=== PATIENT | female | born 1990 | race Caucasian/White ===

== ENCOUNTER 2020-10-28 16:38 | Emergency (ER) | payer OTHER ==
[~2020-10-28] VITALS: Ht 160 cm; Wt 61.0 kg
--- NOTE | 2020-10-28 17:10 | NUR ---
TRIAGE: PATIENT ARRIVES FROM [facility] WHERE SHE WAS FOUND TO HAVE ABDOMINAL PAIN, UA + FOR LEUKS ACCORDING TO PAPERWORK. SHE ADDS THAT LAST NIGHT AT DINNER SHE LOST A STUD EARRING AND IS CONCERNED SHE SWALLOWED IT AND POSSIBLY CAUSING HER PAIN.
--- NOTE | 2020-10-28 17:25 | NUR ---
PT C/O OF INTENSE SHARP PAIN IN ABDOMEN AND LOWER BACK SINCE 9PM LAST NIGHT. DENIES SOB, CP, OR HEADACHE. PT STATES SHE MIGHT HAVE SWOLLOWED A EARRING LAST NIGHT WHEN SHE WAS EATING.
[2020-10-28] MEDS ORDERED: SODIUM CHLORIDE FLUSH 10ML SYR IVF ONE (17:30)
[2020-10-28] MEDS ORDERED: MORPHINE SULFATE 4 MG/ML, 1ML IVPush PRN (17:30)
[2020-10-28] MEDS ORDERED: ONDANSETRON 2MG/ML, 2ML IVPush ONE (17:30)
[2020-10-28] MEDS ORDERED: PLEASE ENTER ALLERGIES MC SCH (17:30)
[2020-10-28] MEDS ORDERED: MORPHINE SULFATE 4 MG/ML, 1ML ONE ×2 (17:33→19:56)
[2020-10-28] MEDS ORDERED: ONDANSETRON 2MG/ML, 2ML ONE ×2 (17:33→19:56)
[2020-10-28 17:46] LABS: BASOPHILS % (AUTO) 1 % (0-1); EOSINOPHILS % (AUTO) 2 % (1-7); LYMPHOCYTES % (AUTO) 39 % (22-44); MEAN CORPUSCULAR HEMOGLOBIN 32.9 pg (27.0-34.8); MEAN CORPUSCULAR HGB CONC 34.3 g/dL (32.4-35.8); MEAN PLATELET VOLUME 9.7 fL (7.4-10.4); MONOCYTES % (AUTO) 7 % (2-9); NEUTROPHILS % (AUTO) 51 % (42-75); PLATELET COUNT 181 x10^3/uL (130-400); RED BLOOD COUNT 4.28 x10^6/uL (3.82-5.3); RED CELL DISTRIBUTION WIDTH 12.7 % (9.6-15.2)
[2020-10-28 17:51] LABS: ALANINE AMINOTRANSFERASE 22 U/L (12-78); ALBUMIN 4.2 g/dL (3.4-5.0); ANION GAP 5 mmol/L (5-15); CHLORIDE 108 mmol/L (98-107); CREATININE 0.82 mg/dL (0.55-1.02); MD NO
[2020-10-28 17:56] LABS: ALKALINE PHOSPHATASE 60 U/L (45-117); BILIRUBIN,TOTAL 0.5 mg/dL (0.2-1.0); TOTAL PROTEIN 7.4 g/dL (6.4-8.2)
--- NOTE | 2020-10-28 17:58 | NUR ---
TASK RN: PT W VASOVAGAL SYNCOPE TO INITIAL PIV ATTEMPT BY DAWN KIRAN. HR 45, SBP 70's. PT RECOVERED INDEPENDENTLY WO INTERVENTION. SHE IS NOW A&OX4, SPEECH CLEAR; NO C/O WEAKNESS, DIZZINESS, OR NAUSEA. TECH AT BEDSIDE TO PLACE PIV. BP/SPO2/ECG MONITORING IN PLACE. SINUS ON MONITOR, HR RECOVERED TO 70's, SBP 95. PWD. DENIES NEED FOR NAUSEA OR PAIN MEDICATIONS. SO AT BEDSIDE. PT/SO UPDATED TO POC (RESULTS/RECHECK) AND DEMONSTRATES UNDERSTANDING.
[2020-10-28 18:10] LABS: MICROSCOPIC AUTO
[2020-10-28] MEDS ORDERED: CEFTRIAXONE 1,000 MG in DEXTROSE 5% 50 ML IVPB ONE (19:30)
--- NOTE | 2020-10-28 19:37 | NUR ---
PT OFF UNIT IN IMAGING.
[2020-10-28] MEDS ORDERED: OMNIPAQUE 350 MG/ML, 100ML BOTTLE ONE (19:59)
--- NOTE | 2020-10-28 20:41 | NUR ---
PT RESTING IN BED. VSS. PT IN NAD. BED IN LOW POSITION. CALL LIGHT WITHIN REACH. SPOUSE AT BEDSIDE.
[2020-10-28 21:21] VITALS: BP 105/65
== END 2020-10-28 21:24 | disposition home or self-care (01) ==
LOC: ED 17:08
DX: N39.0 Urinary tract infection, site not specified (principal); R10.2 Pelvic and perineal pain; R10.9 Unspecified abdominal pain; R11.2 Nausea with vomiting, unspecified
CPT/HCPCS: 36415; 74177; 76830; 80053; 81001; 84703; 85025; 87086; 96365; 96375; 99285; J0696; J2270; J2405; Q9967